=== PATIENT | female | born 1970 | race Caucasian/White ===

== ENCOUNTER 2016-06-25 11:31 | Emergency (ER) | payer BC ==
[~2016-06-25] VITALS: Ht 167.6 cm; Wt 95.6 kg
[~2016-06-25 11:31] MED LIST: SUMA6KIT INJ
[2016-06-25 11:33] VITALS: TEMP 36.7; Ht 167.6 cm; Wt 95.6 kg
--- NOTE | 2016-06-25 12:02 | EMERGENCY ROOM VISIT NOTE ---
History Report prepared by Jas: Vicenta Johnson Under the Supervision of: Dr. Carlos Reagan M.D. First contact with patient: 12:01 Chief Complaint: HYPERTENSION Stated Complaint: ELEVATED BP, TINGLING IN HAND, DIZZY History of Present Illness The patient is a 45 year old female who presents to the Emergency Room with complaints of persistent hypertension that began prior to arrival. She currently rates her discomfort as a 4/10 in severity. The patient states that she previously had a history of hypertension, but states that after she was on medication and began exercising and dieting, her blood pressure returned to normal. She states that over the past week she has not been feeling well, but states that she has still been going to work. The patient states that she has been feeling lightheaded with change of position and has noticed right hand and right finger tingling. Today, she states that she took her blood pressure and found that it was 172/110 mmHg. She states that she had a coworker check her blood pressure again and her pressure was 172/120 mmHg. The patient states that she consulted her PCP and was instructed to come to the emergency department for further evaluation and treatment. Today she additionally associates head pressure. The patient denies any chest pain, shortness of breath, neck pain, or weakness. Source of History: patient Onset: prior to arrival Position: other (global) Symptom Intensity: 4/10 Quality: other (hypertension) Timing: other (persistent) Associated Symptoms: No SOB, No chest pain, No neck pain, No weakness Note: Associated Symptoms: lightheaded, head pressure, right hand and finger tingling. Review of Systems See HPI for pertinent positives & negatives. A total of 10 systems reviewed and were otherwise negative. Past Medical & Surgical Medical Problems: (1) Hypertension Family History Cancer Diabetes mellitus FH: heart disease FH: hypertension Social History Smoking Status: Former Smoker Alcohol Use: none Marital Status: single Occupation Status: employed Current/Historical Medications Scheduled Labetalol Hcl (Labetalol Hcl), 1 TAB PO BID Sumatriptan Succinate (Imitrex Statdose), 1 DOSE INJ DIRECTED Allergies Coded Allergies: No Known Allergies (Verified , 06/25/16) Uncoded Allergies: NKDA (Allergy, Unknown, 04/22/02) Physical Exam Vital Signs Date Time Temp Pulse Resp B/P Pulse Ox O2 Delivery O2 Flow Rate FiO2 06/25/16 14:39 72 16 138/98 100 06/25/16 14:10 75 18 143/98 100 Room Air 06/25/16 13:14 79 159/102 06/25/16 12:37 77 06/25/16 11:57 81 18 180/105 99 Room Air 168/117 172/107 06/25/16 11:33 36.7 82 18 184/102 100 Room Air Physical Exam GENERAL: Patient is in no acute distress. HEENT: No acute trauma, normocephalic atraumatic, mucous membranes moist, no nasal congestion, no scleral icterus. NECK: No stridor, no adenopathy, no meningismus, trachea is midline. LUNGS: Clear to auscultation bilaterally, no wheeze, no rhonchi, breath sounds equal. HEART: Without murmurs gallops or rubs, regular rate and rhythm. ABDOMEN: Soft, nontender, bowel sounds positive, no hernias, no peritonitis. EXTREMITIES: No cyanosis or edema, full range of motion of all the joints without pain or difficulty, no signs for acute trauma. Strong distal right radial pulse. NEUROLOGIC: Oriented x 3, no acute motor or sensory deficits, no focal weakness. No pronator drift or cerebellar dysfunction. Rapid alternating movements intact bilaterally in upper extremities. Right upper extremity radial ulnar and median nerves are intact. SKIN: No rash, no jaundice, no diaphoresis. Medical Decision & Procedures ER Provider Diagnostic Interpretation: X ray results and stated below per my interpretation and radiologist interpretation. Other radiology results and stated below per my review and radiologist interpretation: CHEST ONE VIEW PORTABLE CLINICAL HISTORY: Altered mental status. Weakness. COMPARISON STUDY: No previous studies for comparison. FINDINGS: The cardiac and mediastinal contours are normal. There is no evidence of focal pulmonary consolidation. There is no evidence of failure. No pleural effusions are visualized.[ IMPRESSION: No active disease in the chest. Electronically signed by: Eloy Mcnair M.D. 06/25/2016 12:25 PM Dictated Date/Time: 06/25/2016 12:25 PM Brain MRI WITH AND WITHOUT CONTRAST HISTORY: Right arm numbness. Dizziness TECHNIQUE: Multiplanar multisequence MRI of the brain was performed both before and after the intravenous administration of contrast. COMPARISON STUDY: Head CT 01/06/2011. FINDINGS: There are no areas of restricted diffusion to suggest acute infarction. The midline structures are intact. Small retention cyst within the left maxillary sinus. The mastoid air cells are clear. The ventricles and sulci are within normal limits for age. There is no mass, hematoma, midline shift. The major vascular flow-voids at the skull base are well maintained. Postcontrast sequences show no areas of abnormal enhancement. IMPRESSION: No acute intracranial abnormality. Electronically signed by: Marcus Fowler M.D. 06/25/2016 2:01 PM Dictated Date/Time: 06/25/2016 1:54 PM Laboratory Results 06/25/16 12:00 Red Blood Count 4.96, Mean Corpuscular Volume 84.7, Mean Corpuscular Hemoglobin 29.4, Mean Corpuscular Hemoglobin Concent 34.8, Mean Platelet Volume 11.0, Neutrophils (%) (Auto) 60.7, Lymphocytes (%) (Auto) 30.3, Monocytes (%) (Auto) 7.4, Eosinophils (%) (Auto) 0.9, Basophils (%) (Auto) 0.5, Neutrophils # (Auto) 4.05, Lymphocytes # (Auto) 2.02, Monocytes # (Auto) 0.49, Eosinophils # (Auto) 0.06, Basophils # (Auto) 0.03 06/25/16 12:00 Test 06/25/16 12:00 06/25/16 12:15 White Blood Count 6.66 K/uL (4.8-10.8) Red Blood Count 4.96 M/uL (4.2-5.4) Hemoglobin 14.6 g/dL (12.0-16.0) Hematocrit 42.0 % (37-47) Mean Corpuscular Volume 84.7 fL (80-100) Mean Corpuscular Hemoglobin 29.4 pg (25-34) Mean Corpuscular Hemoglobin Concent 34.8 g/dl (32-36) Platelet Count 242 K/uL (130-400) Mean Platelet Volume 11.0 fL (7.4-10.4) Neutrophils (%) (Auto) 60.7 % Lymphocytes (%) (Auto) 30.3 % Monocytes (%) (Auto) 7.4 % Eosinophils (%) (Auto) 0.9 % Basophils (%) (Auto) 0.5 % Neutrophils # (Auto) 4.05 K/uL (1.4-6.5) Lymphocytes # (Auto) 2.02 K/uL (1.2-3.4) Monocytes # (Auto) 0.49 K/uL (0.11-0.59) Eosinophils # (Auto) 0.06 K/uL (0-0.5) Basophils # (Auto) 0.03 K/uL (0-0.2) RDW Standard Deviation 39.4 fL (36.4-46.3) RDW Coefficient of Variation 12.8 % (11.5-14.5) Immature Granulocyte % (Auto) 0.2 % Immature Granulocyte # (Auto) 0.01 K/uL (0.00-0.02) Anion Gap 4.0 mmol/L (3-11) Est Creatinine Clear Calc Drug Dose 101.1 ml/min Estimated GFR () 100.9 Estimated GFR (Non- 87.1 BUN/Creatinine Ratio 15.1 (10-20) Calcium Level 8.8 mg/dl (8.5-10.1) Total Bilirubin 0.5 mg/dl (0.2-1) Aspartate Amino Transf (AST/SGOT) 11 U/L (15-37) Alanine Aminotransferase (ALT/SGPT) 21 U/L (12-78) Alkaline Phosphatase 60 U/L (45-117) Troponin I < 0.015 ng/ml (0-0.045) Total Protein 7.6 gm/dl (6.4-8.2) Albumin 4.0 gm/dl (3.4-5.0) Globulin 3.6 gm/dl (2.5-4.0) Albumin/Globulin Ratio 1.1 (0.9-2) Thyroid Stimulating Hormone (TSH) 1.620 uIu/ml (0.300-4.500) Urine Color YELLOW Urine Appearance CLEAR (CLEAR) Urine pH 6.0 (4.5-7.5) Urine Specific [place] 1.014 (1.000-1.030) Urine Protein NEG (NEG) Urine Glucose (UA) NEG (NEG) Urine Ketones NEG (NEG) Urine Occult Blood 3+ (NEG) Urine Nitrite NEG (NEG) Urine Bilirubin NEG (NEG) Urine Urobilinogen NEG (NEG) Urine Leukocyte Esterase NEG (NEG) Urine WBC (Auto) 1-5 /hpf (0-5) Urine RBC (Auto) 0-4 /hpf (0-4) Urine Hyaline Casts (Auto) 0 /lpf (0-5) Urine Epithelial Cells (Auto) >30 /lpf (0-5) Urine Bacteria (Auto) 1+ (NEG) Laboratory results reviewed by me. Medications Administered Medications (Trade) Dose Ordered Sig/Anahi Route Start Time Stop Time Status Last Admin Dose Admin Sodium Chloride (Nss 1000ml) 500 ml @ 999 mls/hr Q31M STAT IV 06/25/16 12:04 06/25/16 12:34 DC 06/25/16 12:33 999 MLS/HR Labetalol HCl (Normodyne IV) 20 mg NOW STAT IV 06/25/16 12:04 06/25/16 12:12 DC 06/25/16 12:31 20 MG ECG Indication: other (hypertension) Rate (beats per minute): 78 Rhythm: normal sinus Findings: no acute ischemic change, no ectopy ED Course 1202: The patient was evaluated in room A10. A complete history and physical exam was performed. 1204: Ordered Labetalol HCl 20 mg IV, Sodium Chloride 500 ml @ 999 mls/hr IV. 1418: I reevaluated the patient and she is resting comfortably. I discussed the exam findings with her and I discussed the treatment plan. She verbalized complete understanding and agreement. She is ready to go home. Medical Decision The patient is a 45 year old female who presents to the ED with complaints of hypertension. Differential diagnoses considered include hypertension, electrolyte imbalance, anemia, infection, cardiac ischemia, stroke, nerve impingement.. There is no leukocytosis or concerning anemia. No significant electrolyte abnormality, kidney failure, hepatitis. The patient appears to be in a euthyroid state. EKG shows a normal sinus rhythm, no acute ischemia. Cardiac enzyme testing 1 is not suggestive of acute cardiac injury. Chest x-ray does not show pneumonia, mediastinal widening or cardiomegaly. Brain MRI shows no stroke or mass, there was no acute bleeding. Urinalysis does not show infection but more so contamination. On exam, there were no focal neurologic deficits. The patient was hypertensive. She was given IV labetalol and IV saline. Her blood pressure has improved and she is feeling improved. The patient's workup here is benign except for her hypertension. I will start her on labetalol twice a day for now. She can see her doctor later this week to have her blood pressure rechecked and to talk more about medications for blood pressure control. If things are worsening, she can return. She was reassured and discharged home. Impression Primary Impression: Right arm numbness Additional Impression: Hypertension Scribe Attestation The scribe's documentation has been prepared under my direction and personally reviewed by me in its entirety. I confirm that the note above accurately reflects all work, treatment, procedures, and medical decision making performed by me. Departure Information Dispostion Home / Self-Care Prescriptions Labetalol Hcl (LABETALOL HCL) 100 Mg Tab 1 TAB PO BID for 7 Days, #14 TAB 2 Refills Prov: Carlos Reagan M.D. 06/25/16 Referrals Frances Manley,C.R.N.P. (PCP) Forms HOME CARE DOCUMENTATION FORM, IMPORTANT VISIT INFORMATION Patient Instructions My [facility] Additional Instructions see your doctor for recheck and to talk about blood pressure meds return if worsening start Labetalol 2x per day for now lab testing and imaging were all ok Problem Qualifiers
[2016-06-25] MEDS ORDERED: LABETALOL HCL IV 5 MG/ML 20ML IV STA (12:04)
[2016-06-25] MEDS ORDERED: SODIUM CHLORIDE 0.9% 1000ML 500 ML IV STA (12:04)
--- NOTE | 2016-06-25 12:27 | DIAGNOSTIC IMAGING REPORT ---
CHEST ONE VIEW PORTABLE CLINICAL HISTORY: Altered mental status. Weakness. COMPARISON STUDY: No previous studies for comparison. FINDINGS: The cardiac and mediastinal contours are normal. There is no evidence of focal pulmonary consolidation. There is no evidence of failure. No pleural effusions are visualized.[ IMPRESSION: No active disease in the chest. Electronically signed by: Eloy Mcnair M.D. 06/25/2016 12:25 PM Dictated Date/Time: 06/25/2016 12:25 PM
[2016-06-25 12:34] LABS: BASO % 0.5 %; BASO ABS # 0.03 K/uL (0-0.2); COMPLETE YES; EOS % 0.9 %; IG% 0.2 %; LYMPH % 30.3 %; LYMPH ABS # 2.02 K/uL (1.2-3.4); MEAN CELL VOLUME 84.7 fL (80-100); MEAN CORPUSCULAR HEMOGLOBIN 29.4 pg (25-34); MEAN CORPUSCULAR HGB CONC 34.8 g/dl (32-36); MONO % 7.4 %; NEUT % 60.7 %; PLATELET COUNT 242 K/uL (130-400); RED BLOOD COUNT 4.96 M/uL (4.2-5.4); WHITE BLOOD COUNT 6.66 K/uL (4.8-10.8)
[2016-06-25 12:57] LABS: ALT/SGPT 21 U/L (12-78); AST/SGOT 11 U/L (15-37); BLOOD UREA NITROGEN 12 mg/dl (7-18); BUN/CREATININE RATIO 15.1 (10-20); CALCIUM 8.8 mg/dl (8.5-10.1); CARBON DIOXIDE 30 mmol/L (21-32); CHLORIDE 107 mmol/L (98-107); CREATININE 0.81 mg/dl (0.60-1.20); GLUCOSE 86 mg/dl (70-99); POTASSIUM 3.8 mmol/L (3.5-5.1); SODIUM 141 mmol/L (136-145)
[2016-06-25 13:07] LABS: ALB/GLOB RATIO 1.1 (0.9-2); ALKALINE PHOSPHATASE 60 U/L (45-117)
[2016-06-25 13:25] LABS: URINE APPEARANCE CLEAR (CLEAR); URINE BILIRUBIN NEG (NEG); URINE COLOR YELLOW; URINE EPITHELIAL CELL AUTO >30 /lpf (0-5); URINE NITRITE NEG (NEG); URINE SPECIFIC GRAVITY 1.014 (1.000-1.030); UROBILINOGEN NEG (NEG); ZZUR CULT IF INDIC CLEAN CATCH YES
[2016-06-25 13:28] LABS: MANUAL MICROSCOPIC REQUIRED? NO; REVIEW REQ? NO
[2016-06-25] MEDS ORDERED: GADAVIST IV PRN (14:00)
--- NOTE | 2016-06-25 14:03 | DIAGNOSTIC IMAGING REPORT ---
Brain MRI WITH AND WITHOUT CONTRAST HISTORY: Right arm numbness. Dizziness TECHNIQUE: Multiplanar multisequence MRI of the brain was performed both before and after the intravenous administration of contrast. COMPARISON STUDY: Head CT 01/06/2011. FINDINGS: There are no areas of restricted diffusion to suggest acute infarction. The midline structures are intact. Small retention cyst within the left maxillary sinus. The mastoid air cells are clear. The ventricles and sulci are within normal limits for age. There is no mass, hematoma, midline shift. The major vascular flow-voids at the skull base are well maintained. Postcontrast sequences show no areas of abnormal enhancement. IMPRESSION: No acute intracranial abnormality. Electronically signed by: Marcus Fowler M.D. 06/25/2016 2:01 PM Dictated Date/Time: 06/25/2016 1:54 PM
[2016-06-25] MEDS ORDERED: LABE100T23 PO (14:23)
[2016-06-25 14:39] VITALS: BP 138/98; PULSE 72; O2SAT 100
== END 2016-06-25 14:40 | disposition home or self-care (01) ==
LOC: C.EDB 11:32 → C.EDA 14:40
DX: R20.0 Anesthesia of skin (principal); I10 Essential (primary) hypertension; Z83.3 Family history of diabetes mellitus; Z82.49 Family history of ischemic heart disease and other diseases of the circulatory system; Z87.891 Personal history of nicotine dependence